=== PATIENT | male | born 1980 | race American Indian/Alaskan Native ===

== ENCOUNTER 2019-11-02 05:14 | Day surgery (SDC) | payer BC, OTHER ==
[2019-10-31 10:34] LABS: BASOPHILS % (AUTO) 0.5 % (0.0-5.0); EOSINOPHILS % (AUTO) 5.4 % (0.0-8.0); HEMATOCRIT 45.7 % (42-54); LYMPHOCYTES % (AUTO) 19.4 % (21.0-51.0); MEAN CORPUSCULAR HEMOGLOBIN 31.4 pg (27.0-33.0); MEAN CORPUSCULAR HGB CONC 33.9 g/dL (32.0-36.0); MEAN CORPUSCULAR VOLUME 92.7 fL (79-99); MONOCYTES % (AUTO) 8.2 % (3.0-13.0); PLATELET COUNT (AUTO) 220 K/uL (130-400); RED BLOOD CELL COUNT(AUTO) 4.93 MIL/uL (4.50-6.20); WHITE BLOOD COUNT (AUTO) 7.3 K/uL (4.8-10.8)
[2019-10-31 10:47] VITALS: BP 156/94
[2019-10-31 10:47] LABS: CREATININE 1.1 mg/dL (0.5-1.5); POTASSIUM 4.6 mmol/L (3.5-5.1)
[2019-10-31 10:51] LABS: INR 0.92 (0.85-1.15)
[2019-11-02] VITALS (17 sets, daily range): BP systolic 118–149; BP diastolic 63–99
[~2019-11-02] VITALS: Ht 182.9 cm; Wt 127.5 kg
[2019-11-02] MEDS: CEFAZOLIN SODIUM 1 GM VIAL IVP SCH ×3 (06:00→08:05)
[2019-11-02] MEDS ORDERED: LACTATED RINGERS 1000ML 1,000 ML IV ONE (06:05)
--- NOTE | 2019-11-02 06:42 | NUR ---
POTENTIAL FOR INFECTION: CLIPPED RIGHT KNEE / RT LEG PER MCKAYLA DAVIS, FOLLOWED BY WIPING WITH QUENTIN: 2% CHLORHEXIDINE GLUCONATE CLOTH PATIENTS PRE-OP SKIN PREP.
[2019-11-02] MEDS ORDERED: LIDOCAINE PF 2% 5ML ABBOJECT ONE (07:25)
[2019-11-02] MEDS ORDERED: PROPOFOL 10 MG/ML 20ML VIAL IV ONE (07:25)
[2019-11-02] MEDS ORDERED: FENTANYL CITRATE PF 50 MCG/1 ML 5ML AMP IV ONE (07:25)
[2019-11-02] MEDS ORDERED: MIDAZOLAM HCL 1 MG/ML 2ML VIAL ONE (07:25)
[2019-11-02] MEDS ORDERED: ONDANSETRON HCL 4 MG/2 ML VIAL ONE (07:29)
[2019-11-02] MEDS ORDERED: DEXAMETHASONE SOD PHOSPHATE 10MG/ML 1ML VIAL ONE (07:29)
[2019-11-02] MEDS ORDERED: SUCCINYLCHOLINE CHLORIDE 20 MG/ML 10 ML VIAL ONE (08:04)
[2019-11-02] MEDS ORDERED: GENTAMICIN SULFATE 80 MG/2 ML VIAL ONE (08:25)
[2019-11-02] MEDS ORDERED: MEPERIDINE-PF 25 MG/ML SYG ONE (08:30)
[2019-11-02] MEDS ORDERED: CEFAZOLIN SODIUM 1 GM VIAL ONE (08:42)
[2019-11-02] MEDS ORDERED: FENTANYL CITRATE PF 50 MCG/1 ML 2ML VIAL ONE ×2 (10:04→10:20)
[2019-11-02] MEDS ORDERED: ROPIVACAINE 0.5% 5MG/ML 30ML IJ ONE (10:07)
[2019-11-02] MEDS ORDERED: KETOROLAC TROMETHAMINE 30MG/ML ONE (10:10)
[2019-11-02] MEDS ORDERED: IBUP-2070 PO (10:37)
[2019-11-02] MEDS ORDERED: CEPH500B PO (10:37)
[2019-11-02] MEDS ORDERED: HYDR-4457 PO (10:37)
== END 2019-11-02 12:20 | disposition home or self-care (01) ==
LOC: DAH 05:14
PROVIDERS: ATTEND Orthopaedic Surgery
DX: S83.211A Bucket-handle tear of medial meniscus, current injury, right knee, initial encounter (principal); S83.511A Sprain of anterior cruciate ligament of right knee, initial encounter; S83.281A Other tear of lateral meniscus, current injury, right knee, initial encounter; X58.XXXA Exposure to other specified factors, initial encounter; Z79.899 Other long term (current) drug therapy; Z98.890 Other specified postprocedural states; Y99.0 Civilian activity done for income or pay; Y93.89 Activity, other specified; Y92.89 Other specified places as the place of occurrence of the external cause; Z72.89 Other problems related to lifestyle
CPT/HCPCS: 29880; 29888; 36415; 64447; 76942; 80048; 85025; 85610; A4213; A4215; A4221; A4222; A4223; A4649 ×6; A4663; A4930; A5120; A6223; C1713; C1762; C1776; J0330; J0690 ×3; J1100; J1885; J2001; J2175; J2250; J2405; J2704; J2795; J3010 ×3; J7030 ×2; J7120 ×2; J1580